=== PATIENT | female | born 1975 | race Caucasian/White ===

== ENCOUNTER 2018-10-01 05:53 | Day surgery (SDC) | payer BC, OTHER ==
[2018-10-01] VITALS (16 sets, daily range): BP systolic 89–108; BP diastolic 55–72; PULSE 56–96; RESP 12–19; Ht 152.4 cm; Wt 56.9 kg
[~2018-10-01] VITALS: Ht 152.4 cm; Wt 56.9 kg
[2018-10-01] MEDS ORDERED: SOD CHLORIDE 0.9% 1,000 ML IV SCH (06:00)
[2018-10-01] MEDS ORDERED: CEFAZOLIN 2 GM/50 ML (PMX) 50 ML IVPB ONE (06:00)
[2018-10-01] MEDS ORDERED: CEFAZOLIN 1 GM INJ ONE (07:00)
[2018-10-01] MEDS ORDERED: EPHEDrine SULFATE 50 MG/5 ML SYG ONE (07:00)
[2018-10-01] MEDS ORDERED: SEVOFLURANE 15 MIN ONE (07:00)
[2018-10-01] MEDS ORDERED: BUPIVACAINE 0.5%/EPI (SDV) 30 ML INJ ONE (07:39)
--- NOTE | 2018-10-01 08:10 | PREAC ---
Date/Time of Note Date/Time of Note DATE: 10/01/18 TIME: 08:09 Anesthesia Eval and Record Evaluation Time Pre-Procedure Interview DATE: 10/01/18 TIME: 07:50 Age 43 Sex female NPO: 8 hrs Preoperative diagnosis Back Mass Planned procedure Excision of Back Mass Past Medical History Past Medical History: None Surgery & Anesthesia Issues No known issue Meds Anticoagulation: No Beta Justus within 24 hr: No Reason Beta Justus not given: Pt. not on B-Justus Current Medications Sodium Chloride 1,000 ml @ 75 mls/hr [id number] IV ; Start 10/01/18 at 06:00; Stop 10/01/18 at 19:19 Meds reviewed: Yes Allergies Coded Allergies: No Known Drug Allergies (Unverified Allergy, Unknown, 09/30/18) Allergies Reviewed: Yes Labs/Studies Labs Reviewed: Reviewed by anesthesiologist test: Negative Studies: ECG (n/a), CXR (n/a) Pre-procedure Exam Last vitals Vital Signs Date Temp Pulse Resp B/P (MAP) Pulse Ox O2 O2 Flow FiO2 Time Delivery Rate 10/01/18 98.0 62 18 100/61 98 Room Air 06:34 (74) Airway: Adequate mouth opening, Adequate thyromental dist Mallampati: Mallampati II Teeth: Normal Lung: Normal Heart: Normal ASA Physical Status ASA physical status: 2 Emergency: None Planned Anesthetic General/MAC: ETT, LMA Planned Pain Management Parenteral pain med Pre-operative Attestations Prior to commencing anesthesia and surgery, the patient was re-evaluated, there was verification of: *The patient's identity *The results of appropriate recent lab work and preoperative vital signs *The above evaluation not changing prior to induction *Anesthetic plan, risk benefits, alternative and complications discussed with patient/family; questions answered; patient/family understands, accepts and wishes to proceed. LEAH MICHAEL MD Oct 01, 2018 08:10
[2018-10-01] MEDS ORDERED: METOCLOPRAMIDE 10 MG INJ IV PRN (08:30)
[2018-10-01] MEDS ORDERED: ONDANSETRON 4 MG INJ IV PRN (08:30)
[2018-10-01] MEDS ORDERED: DIPHENHYDRAMINE 50 MG INJ IV PRN (08:30)
[2018-10-01] MEDS ORDERED: FENTAnyl 50 MCG/ML VIAL IV PRN ×2 (08:30)
[2018-10-01] MEDS ORDERED: OXYCODONE/ACETAMINOPHEN (5/325) TAB PO PRN ×2 (08:30)
[2018-10-01] MEDS ORDERED: LABETALOL HCL 20MG INJ IV PRN (08:30)
[2018-10-01] MEDS ORDERED: MEPERIDINE 25 MG INJ IV PRN (08:30)
[2018-10-01] MEDS ORDERED: EPHEDrine SULFATE 50 MG/5 ML SYG IV PRN (08:30)
[2018-10-01] MEDS ORDERED: HYDROmorphONE 1 MG/5 ML IV SYRINGE IV PRN ×2 (08:30)
[2018-10-01] MEDS ORDERED: ROCURONIUM 50 MG INJ ONE (08:52)
[2018-10-01] MEDS ORDERED: MIDAZOLAM 1 MG/ML 2 ML INJ ONE (08:52)
[2018-10-01] MEDS ORDERED: PROPOFOL 20 ML ONE (08:52)
[2018-10-01] MEDS ORDERED: FENTAnyl 50 MCG/ML VIAL ONE (08:52)
--- NOTE | 2018-10-01 09:57 | PAC ---
Date/Time of Note Date/Time of Note DATE: 10/01/18 TIME: 09:57 Post-Anesthesia Notes Post-Anesthesia Note Last documented vital signs Vital Signs Date Temp Pulse Resp B/P (MAP) Pulse Ox O2 O2 Flow FiO2 Time Delivery Rate 10/01/18 98.0 62 18 100/61 98 Room Air 10:05 (74) Activity: WNL Respiratory function: WNL Cardiovascular function: WNL Mental status: Baseline Pain reasonably controlled: Yes Hydration appropriate: Yes Nausea/Vomiting absent: Yes LEAH MICHAEL MD Oct 01, 2018 09:57
[2018-10-01] MEDS ORDERED: ONDANSETRON 4 MG INJ ONE (09:58)
[2018-10-01] MEDS ORDERED: DEXAMETHASONE 4 MG/ML 5 ML INJ ONE (09:58)
[2018-10-01] MEDS ORDERED: KETOROLAC 30 MG INJ ONE (09:58)
[2018-10-01] MEDS ORDERED: METOCLOPRAMIDE 10 MG INJ ONE (09:58)
[2018-10-01] MEDS ORDERED: GLYCOPYRROLATE 0.4 MG INJ ONE (09:59)
[2018-10-01] MEDS ORDERED: NEOSTIGMINE 3 MG/3 ML SYRINGE ONE (09:59)
--- NOTE | 2018-10-01 10:20 | OPR ---
Date/Time of Note Date/Time of Note DATE: 10/01/18 TIME: 10:09 Operative Report Procedure Date: Oct 01, 2018 Preoperative Diagnosis Lipoma of the back Postoperative Diagnosis Same Operation/Procedure Performed Excision of upper back lipoma Surgeon Jose Carlos Marroquin MD [facility] [place] none Anesthesia Type: general Estimated Blood Loss: minimal Transfusion none Specimen Lipoma Grafts/Implants none Complications none Pt Condition Post Procedure: stable Disposition: PACU Indications Patient with a large lipoma in the center of her back that was causing pain and discomfort with physical activity and is going to undergo excision for treatment. Procedure Description Patient was laid prone on the operating room table and her back was prepped and draped in a sterile manner. The lipoma was in the upper part of her back just inferior to her neck. The lipoma was rather large therefore a 10 cm incision was created. Incision was deepened until the capsule of the lipoma was encountered. The lipoma was just abutting the muscle and therefore some fascia and muscle tissue had to be taken with it. The lipoma was fully excised circumferentially taking some adjacent subcutaneous tissue with this so that complete excision will be carried out. Very few muscle fibers and fascia fibers of the erector spinae muscle came out with the specimen. The area was then irrigated and hemostasis was confirmed with electrocautery. Afterwards horizontal mattress sutures using 3-0 nylon were used to close the wound and then the skin was reapproximated for improved closure using 4-0 Monocryl subcuticular suture. Wet dry dressings were applied and thereafter the wound was covered with Dermabond. All instrument needle and sponge counts were correct at the end of the procedure. Patient tolerated the procedure well. JOSE CARLOS MARROQUIN Oct 01, 2018 10:20
== END 2018-10-01 12:21 | disposition home or self-care (01) ==
LOC: SDS 05:53
PROVIDERS: ATTEND Surgery Surgical Critical Care
DX: D17.1 Benign lipomatous neoplasm of skin and subcutaneous tissue of trunk (principal)
CPT/HCPCS: 21933; J1100; J1885; J2250; J2405; J2710; J2765; J3010; Z7610; 88304; J0690